=== PATIENT | female | born 1935 | race Caucasian/White ===

== ENCOUNTER 2017-10-30 05:13 | Inpatient (IN) ==
[2017-10-30] MEDS ORDERED: Dexamethasone Inj 20 MG/5 ML Vial IV.PUSH ONE (05:44)
[2017-10-30] MEDS ORDERED: Metoprolol Tartrate 25 MG Tablet PO SCH (05:45)
[2017-10-30] MEDS ORDERED: Insulin NovoLIN Regular Correctional Sugar Inj SQ SCH (05:45)
[2017-10-30] MEDS ORDERED: Chlorhexidine 4% Topical 120 APPLIC/120 ML Bottle TOPICAL SCH (05:45)
[2017-10-30] MEDS ORDERED: Chlorhexidine Gluconate 2% 1 Pack (2 Cloths) TOPICAL SCH (05:45)
[2017-10-30] MEDS ORDERED: TRANEXAMIC ACID IV.SIG SCH ×2 (06:00→10:10)
[2017-10-30] MEDS ORDERED: Sodium Chlor 0.9% Inj 40 ML, Bupivacaine Liposo PF 1.3% Inj 20 ML P-ARTICULR SCH ×2 (06:00)
[2017-10-30] MEDS ORDERED: SODIUM CHLOR 0.9% IV.SIG SCH ×2 (06:00→10:10)
[2017-10-30] MEDS ORDERED: Sodium Chlor 0.9% Inj 500 ML IV.SIG SCH (06:00)
[2017-10-30] MEDS ORDERED: ceFAZolin 2 GM Premix Inj 2 GM/50 ML PIGGYBACK IV.SIG SCH (06:00)
[2017-10-30] MEDS ORDERED: Vancomycin Inj 1 GM/200 ML PIGGYBACK IV.SIG SCH (06:00)
[2017-10-30] MEDS ORDERED: Famotidine PF Inj 20 MG/2 ML Vial ONE (06:26)
--- NOTE | 2017-10-30 07:09 | P.DCO ---
- Physical Therapy Physical Therapy: Gait training, Transfer training, bed to chair Hip: Total hip Right Lower Extremity Weight Bearing: Weight bearing as tolerated Right Lower Extremity Range of Motion: Active ROM - Nursing Nursing: Sivan durham Dressing changes: Do not change dressing Additional instructions: First dressing change in the office - Certification Need for Home Health services: I have seen patient Jocelyne Gillis on 10/30/17. My clinical findings support the need for the requested home health care services because: Need for Home Health Services: Limited ability to care for self, High risk of falls Homebound Certification: I certify that my clinical findings support that this patient is homebound because: Homebound Certification: Post-op weakness, Unsteady gait/balance
[2017-10-30] MEDS ORDERED: Zolpidem Tartrate 5 MG Tablet PO PRN (08:28)
[2017-10-30] MEDS ORDERED: Aluminum/Magnesium/Simethacone Susp 30 ML UDC PO PRN (08:28)
[2017-10-30] MEDS ORDERED: Post-op Orders (for Pharmacy) OTHER STA (08:28)
[2017-10-30] MEDS ORDERED: Bisacodyl 10 MG Supp RECTAL PRN (08:28)
[2017-10-30] MEDS ORDERED: Dicyclomine 10 MG Capsule PO PRN (08:30)
[2017-10-30] MEDS ORDERED: LORazepam 0.5 MG Tablet PO PRN (08:30)
--- NOTE | 2017-10-30 08:36 | P.OP ---
- Preoperative Diagnosis (1) Osteoarthritis of right hip Comment: , Severe - Postoperative Diagnosis (1) Osteoarthritis of right hip Date of procedure: 10/30/17 Procedure: Right total hip arthroplasty Anesthesia: GETA Surgeon: Giovanni Beaulieu MD Behavioral Interventionist: ARIELLE Melgoza The surgical procedure was assisted by my Advanced Registered Nurse Practitioner. My VENEREAL DISEASE INVESTIGATOR presence was necessary throughout this case for the manipulation and positioning of the surgical extremity. My VENEREAL DISEASE INVESTIGATOR was assisting me throughout the duration of this procedure. The skill set of an Advance Registered Nurse Practitioner was medically necessary to complete this procedure. During the surgical case, the neurosurgical nurse practitioner was working at the back table and the Advance Registered Nurse Practitioner was directly assisting me. Estimated blood loss (mL): 250 Operation and Findings: IMPLANT DESCRIPTION: 1. [place] Gription Cup, acetabular size 52. 2. [place] AltrX polyethylene, neutral. 4. [place] femoral stem size 11, no collar, standard offset. 5. Femoral head/neck metal, 36, +1.5. ESTIMATED BLOOD LOSS: 250 cc. JUSTIFICATION FOR PROCEDURE: The patient has end-stage osteoarthritis to the hip. There is an attached conservative measures pathway form in the chart that describes the nonoperative measures that were undertaken prior to consideration of surgical management. The patient understood the risks and benefits of surgical management. See my office notes for further details. PROCEDURE: The patient was brought back to the operative theatre. Adequate anesthesia was obtained. The patient received intravenous vancomycin and Ancef. The patient was carefully placed on the operative table. The lower extremity was prepped and draped in the usual sterile fashion. Fluoroscopic images were obtained. We made a standard anterior incision over the hip. We dissected through the TFL fascia, exposing the anterior capsule. Arthrotomy was performed in a T-shaped fashion. The capsule was tagged with a #2 FiberWire. End-stage arthritis was identified. Osteotomy was performed through the femoral neck exposing the acetabulum. Remnants of the labrum were resected and osteophytes were removed. We sequentially reamed the acetabulum. We trialed the hip and placed the final cup into position. This was done under fluoroscopic guidance to obtain the appropriate inclination and anteversion. A manhole cover was placed into the acetabular component. We then placed the final polyethylene into position and confirmed that it was well seated. Capsular attachments on the calcar and the inner aspect of the greater trochanter were resected. On the proximal aspect of the femur we used a rongeur , box osteotome, canal finder, sequential broaches and lateralizing rasp. We calcar planed the proximal femur. Then thoroughly irrigated the wound. We trialed the hip with the appropriate size stem. We placed the final stem in to position and trialed again. The hip was stable while it was externally rotated 70 degrees when the leg was lowered to the floor. The final head was applied, and final fluoroscopic images were obtained. The wound was thoroughly irrigated again. Interarticular injection of liposomal bupivacaine was given. The capsule was closed with #2 FiberWire and #1 Vicryl. The deep fascia was closed with a #2 Stratafix, followed by 2-0 Vicryl in the skin and Dermabond dressing. Postop plan is to weight-bear as tolerated. DVT prophylaxis will be performed with SCDs, CARMEN lacy, early mobilization, and aspirin 81 mg p.o. twice daily for 6 weeks.
[2017-10-30] MEDS ORDERED: fentaNYL Citrate Inj 100 MCG/2 ML Ampul ONE (08:59)
[2017-10-30] MEDS ORDERED: HYDROmorphone PF Inj 2 MG/ML Vial ONE ×2 (09:00→09:12)
--- NOTE | 2017-10-30 09:48 | XR ---
EXAM DATE: 10/30/2017 9:33 AM EDT AGE/SEX: 82 years / Female INDICATIONS: Post op right hip. CLINICAL DATA: This is the patient's initial encounter. Patient reports that signs and symptoms have been present for 1 day and indicates a pain score of Nonresponsive. MEDICAL/SURGICAL HISTORY: None. None. COMPARISON: [facility], XR HIP AP AND LAT, RIGHT, 05/20/2017. . FINDINGS: The patient is post right hip arthroplasty. Orthopedic hardware is in excellent position. No complica tion is seen. There are advanced degenerative changes within the left hip. CONCLUSION: Uncomplicated right hip arthroplasty. Orthopedic hardware in excellent position. Electronically signed by: Royce Gómez MD 10/30/2017 9:47 AM EDT
--- NOTE | 2017-10-30 09:50 | XR ---
EXAM DATE: 10/30/2017 9:30 AM EDT AGE/SEX: 82 years / Female INDICATIONS: Total right hip arthroplasty. CLINICAL DATA: This is the patient's initial encounter. Patient reports that signs and symptoms have been present for 1 day and indicates a pain score of Nonresponsive. MEDICAL/SURGICAL HISTORY: None. None. COMPARISON: No prior exams available for comparison. FINDINGS: Status post placement of a right hip prosthetic device. There is good position and alignment of the p rosthesis with the bony structures. The bony structures are grossly intact. CONCLUSION: Good position and alignment on this postoperative study. Electronically signed by: Bo Couch MD 10/30/2017 9:48 AM EDT
[2017-10-30] MEDS: Sod Chloride 0.9% Inj 1,000 ML IV.CONT SCH (10:15)
[2017-10-30] MEDS ORDERED: Neostigmine Inj 5 MG/5 ML Syringe IV.PUSH ONE (12:00)
[2017-10-30] MEDS ORDERED: Glycopyrrolate Inj 1 MG/5 ML Syringe IV.PUSH ONE ×2 (12:00)
[2017-10-30] MEDS ORDERED: Lidocaine PF 1% Inj 5 ML Syringe INFILTRATN ONE (12:00)
[2017-10-30] MEDS: Pregabalin 25 MG Capsule PO SCH ×2 (14:25→20:25)
[2017-10-30] MEDS: oxyCODONE/Acetaminophen 10/325 Tablet PO PRN (18:00)
[2017-10-30] MEDS: HYDROmorphone PF Inj 2 MG/ML Vial IV.PUSH PRN ×2 (20:24→23:28)
[2017-10-30] MEDS: Senna/Docusate Sodium 8.6/50 MG Tablet PO SCH ×2 (20:25→22:17)
[2017-10-30] MEDS: Multivitamin/Minerals Therapeutic Tablet PO SCH ×2 (20:26→22:17)
[2017-10-31] MEDS: oxyCODONE/Acetaminophen 10/325 Tablet PO PRN ×4 (00:19→17:38)
[2017-10-31] MEDS: Sod Chloride 0.9% Inj 1,000 ML IV.CONT SCH ×2 (01:47→16:00)
[2017-10-31] MEDS: HYDROmorphone PF Inj 2 MG/ML Vial IV.PUSH PRN ×2 (02:26→22:29)
[2017-10-31 05:45] LABS: Hematocrit 28.1 % (35.0-46.0); Hemoglobin 9.5 gm/dL (11.6-15.3)
[2017-10-31] MEDS ORDERED: Dexamethasone Inj 20 MG/5 ML Vial IV.PUSH ONE (08:00)
[2017-10-31] MEDS: Pregabalin 25 MG Capsule PO SCH ×2 (09:10→20:46)
[2017-10-31] MEDS: Multivitamin/Minerals Therapeutic Tablet PO SCH ×2 (09:10→20:47)
[2017-10-31] MEDS: Senna/Docusate Sodium 8.6/50 MG Tablet PO SCH ×2 (09:10→20:47)
--- NOTE | 2017-10-31 18:57 | P.PNOP ---
Subjective Interval history: The patient is resting in bed in no acute distress. The patient states she did have a fall this morning when trying to get out of bed. The patient states her walker tipped over and she went with it. The patient denies any new complaints of pain. The patient reports minimal pain to the right hip, however her primary complaint is muscle spasms. The patient states the medical doctor prescribed cyclobenzaprine for her muscle spasms which have been helpful. Physical Exam Vital signs: Vital Signs 10/30/17 20:00 10/31/17 00:00 10/31/17 04:00 Temperature 99.9 F H 99.8 F H 98.6 F Pulse Rate 82 90 82 Respiratory Rate 24 18 20 Blood Pressure 100/61 122/57 L 102/55 L Pulse Oximetry 97 91 L 92 L 10/31/17 06:50 10/31/17 08:50 10/31/17 09:50 Temperature 98.1 F 97.6 F 100 F H Pulse Rate 88 84 78 Respiratory Rate 18 18 18 Blood Pressure 144/90 H 129/61 100/51 L Pulse Oximetry 95 95 10/31/17 10:50 10/31/17 12:00 10/31/17 12:03 Temperature 98.3 F 98.3 F Pulse Rate 77 71 Respiratory Rate 12 14 Blood Pressure 101/55 L Pulse Oximetry 95 10/31/17 14:50 10/31/17 18:08 Temperature 98.6 F Pulse Rate 71 Respiratory Rate 12 18 Blood Pressure 108/52 L Pulse Oximetry 95 Intake & Output 10/30/17 10/31/17 10/31/17 18:59 06:59 18:59 Intake Total 2058.15 / 2058.15 720 / 720 1208.15 / 1208.15 Output Total 250 / 250 Balance 1808.15 / 1808.15 720 / 720 1208.15 / 1208.15 Weight 81.5 kg 81.5 kg Intake: IV 558.15 / 558.15 1208.15 / 1208.15 NS Inj 1,000 ML @ 80 mls/hr IV. 1000 / 1000 CONT .[id number] ANGELA Rx#:[id number] Cyklokapron Inj 815 MG In NS 108.15 / 108.15 Inj 100 ML @ 200 mls/hr IV.SIG ONCE ANGELA Rx#:[id number] Vancomycin Inj 1 gm In 200 ml @ 200 / 200 200 mls/hr IV.SIG BOARD CERTIFIED BEHAVIORAL ANALYST ANGELA Rx#:[id number] Ancef 2 GM Premix Inj 2 gm In 50 / 50 50 ml @ 100 mls/hr IV.SIG BOARD CERTIFIED BEHAVIORAL ANALYST ANGELA Rx#:[id number] Ancef Inj 1,000 MG In NS Inj 200 / 200 100 ML @ 200 mls/hr IV.SIG Q6H ANGELA Rx#:[id number] Oral 720 / 720 Anesthesia Amount 1500 / 1500 Output: Estimated Blood Loss 250 / 250 Other: # Voids 2 2 Date of Last Bowel Movement 10/29/17 10/29/17 Narrative: The patient's dressing is intact. The patient's dressing was changed due to moderate serosanguineous drainage. The patient's current dressing has minimal drainage. EHL/TA/G are intact. 2+ pedal pulse. The patient's calf is soft and nontender. Sensation is intact to light touch distally. Results - Labs CBC & Chem 7: 10/31/17 04:50 Laboratory Results - last 24 hr 10/31/17 04:50 Hgb 9.5 L Hct 28.1 L - Procedures Right total hip arthroplasty Assessment and Plan - Assessment and Plan POD #1: [Right] total hip arthroplasty 1. Weightbearing as tolerated on [right] lower extremity. 2. Aspirin 81 mg twice daily for DVT prophylaxis. 3. Ice as needed for swelling. 4. Anticipatory discharge Saturday or Saturday to home versus detention facility. 5. The patient will follow up with Dr. Beaulieu and/or ARIELLE Navarrete as previously scheduled.
[2017-11-01] MEDS: oxyCODONE/Acetaminophen 10/325 Tablet PO PRN ×2 (04:22→10:58)
[2017-11-01] MEDS: Sod Chloride 0.9% Inj 1,000 ML IV.CONT SCH (04:22)
[2017-11-01 04:24] LABS: Hemoglobin 9.1 gm/dL (11.6-15.3)
[2017-11-01] MEDS: HYDROmorphone PF Inj 2 MG/ML Vial IV.PUSH PRN (06:15)
[2017-11-01] MEDS: Pregabalin 25 MG Capsule PO SCH (09:31)
[2017-11-01] MEDS: Senna/Docusate Sodium 8.6/50 MG Tablet PO SCH (09:31)
[2017-11-01] MEDS: Multivitamin/Minerals Therapeutic Tablet PO SCH (09:31)
--- NOTE | 2017-11-13 15:44 | P.DS ---
Date of admission: 10/30/17 08:26 Primary care physician: Gurmeet Barkley MD Attending physician on discharge: Giovanni Beaulieu Anticipated date of discharge: 11/01/17 Brief History from admission: The patient was admitted with severe OA of the right hip to have a right IRENE DS: Diagnosis - Discharge Diagnosis (1) Osteoarthritis of right hip Status: Acute (2) Status post total hip replacement, right Status: Acute DS: Summary Hospital Course: The patient was admitted to the hospital for severe osteoarthritis of the [right ] hip to have a [right] total hip arthroplasty. The patient's surgery went well with no complication. The patient is on a [regular] diet. The patient's DVT prophylaxis includes use of [ASA 81 mg BID]. The patient is weightbearing as tolerated. The patient was discharged [home with home health] and will follow up in the office with Dr. Beaulieu and/or ARIELLE Navarrete as previously scheduled. - Time Spent with Patient Total time spent providing and/or coordinating discharge services: Greater than 30 minutes - Quality: VTE Deep Vein Thrombosis/Pulmonary Embolism Present on Admission: No Exam Narrative: See last progress note Results Procedures completed during hospitalization: Right total hip arthroplasty - Impressions ITS Impressions Hip X-Ray 10/30/17 08:26 CONCLUSION: Uncomplicated right hip arthroplasty. Orthopedic hardware in excellent position. Discharge Plan - Discharge Disposition Patient Disposition: W/Home Health Service - Discharge Condition Condition: Stable - Discharge Order Discharge Orders: Discharge Order (Routine); Ordered 10/30/17 Ordered By: Royce Conte - Discharge Details Anticipated Discharge Date: 11/01/17 Discharge Comment: f/u in the office with Dr. Beaulieu or ARIELLE Navarrete - Physicians Team Primary Care Provider: Gurmeet Barkley Attending Provider: Giovanni Beaulieu - Rxs /Orders / Referrals /Forms Prescriptions: Continue calcium carbonate [Calcium 600] 600 mg calcium (1,500 mg) Tablet 600 mg PO DAILY cholecalciferol (vitamin D3) [Vitamin D3] 1,000 unit Tablet 1,000 unit PO DAILY citalopram [Celexa] 40 mg Tablet 40 mg PO DAILY dicyclomine 10 mg Capsule 10 mg PO QID PRN (Reason: Loose Stool) fentanyl (PF)-bupivacaine-NaCl 2 mcg/mL- 0.1 % Prefilled Pump [place] fluocinonide 0.1 % Cream 1 applic TOPICAL BID lansoprazole [Prevacid] 30 mg Capsule,Delayed Release(Dr/Ec) 30 mg PO AC DINNER lorazepam 0.5 mg Tablet 0.5 mg PO BID PRN (Reason: Anxiety) multivitamin Tablet 1 tab PO DAILY oxycodone-acetaminophen 10-325 mg Tablet 1 tab PO Q6H PRN (Reason: Pain) pregabalin [Lyrica] 50 mg Capsule 50 mg PO BID Discontinued aspirin [Aspirin Low Dose] 81 mg Tablet,Delayed Release (Dr/Ec) 81 mg PO HS [id number] C-Mn [Glucosamine Chondroitin MaxStr] 500-400 mg Capsule 1 tab PO DAILY Ambulatory Orders / Order Sets / DME: Adjustable Commode 3-in-1 (1 each) (Routine) Location: Determined by Patient Ordered By: Royce Conte Walker With Front Wheels (1 each) (Routine) Location: Determined by Patient Ordered By: Royce Conte Referrals: Gurmeet Barkley MD [Primary Care Provider] - See Instructions Nurse Oncall,Agency [AGENCY] - See Instructions - Discharge Instructions Patient Printed Instructions: How to Choose and Use a Walker (GEN), Regular Diet (DC), Fall Prevention (DC), CARMEN Hose (DC), Total Hip Replacement (DC) Additional Instructions: Do not change surgical dressing, leave intact. Take medications as directed. Keep or make follow up appointments as directed. Maintain safety precautions to prevent falls. - Post Discharge Care Plan Care Plan Goals: Discharge Care Plan Goals for Total Hip Replacement You had a hip replacement surgery. This means your natural hip was replaced with an artificial joint (prosthesis). You may be recovering at home or in a rehabilitation facility. Either way, you must take care of your new hip. Here are some goals to help you heal well. Directions to Meet your Goals: 1. Activity & Exercises: * Take pain medicine as directed by your doctor. * Dont drive until your doctor says its OK. And never drive while taking opioid pain medicine. * Wear the support stockings you were given in the hospital as directed by your surgeon. * Dont sit for more than 30 to 45 minutes at one time. * Dont lean forward while sitting. * Dont cross your legs. * Keep your feet flat on the floor. Dont turn your foot or leg inward. This stresses your hip joint. * Use an elevated toilet seat for 6 weeks after surgery. * Nap if you are tired, but dont stay in bed all day. * Sit on a firm cushion when you ride in a car and avoid sitting too low. Try not to bend your hip too much when getting in and out of the car. 2. Prevent Falls/Injury: * Follow your doctors orders regarding how much weight to put on the affected leg. * Dont bend at the hip when you bend over. Don't bend at the waist to put on socks and shoes. And avoid picking up items from the floor. * Use a cane, crutches, a walker, or handrails until your balance, flexibility, and strength improve. And remember to ask for help from others when you need it. * Free up your hands so that you can use them to keep balance. Use a peter pack , apron, or pockets to carry things. * Arrange your household to keep the items you need handy. Keep everything else out of the way. * Remove items that may cause you to fall, such as throw rugs and electrical cords. * Use nonslip bath mats, grab bars, an elevated toilet seat, and a shower chair in your bathroom * Sit on a shower stool or chair when you shower to keep from falling. 3. Precautions: * Prevent infection. Any infection will need to be treated immediately. Call your doctor right away if you think you might have an infection. * Tell your dentist that you have an artificial joint and take antibiotics as prescribed before any dental work. * Tell all your healthcare providers about your artificial joint before any medical procedure. * Maintain a healthy weight. Get help to lose any extra pounds. Added body weight puts stress on the joints. 4. Incision Care: * Prevent infection by washing your hands often. If an infection occurs, it will need to be treated right away. * Call your doctor right away if you think you may have an infection. Symptoms include a fever or an incision that leaks white, green, or yellow fluid. * Don't soak your incision in water until your doctor says its OK. This means no hot tubs, bathtubs, or swimming pools. * Follow your doctor's instructions for changing the dressing. * Dont rub the incision, or apply creams or lotions to it. * If you notice any redness or drainage around the bandage site, contact your surgeon's office immediately. 5. Follow-Up: Do Not miss your follow-up appointment. Keep up with all your appointments and yearly check ups When to call your doctor: Call your doctor right away if you have: Hip pain gets worse Pain or swelling in your calf or leg not related to your incision Tenderness or redness in your calf Fever of 100.4F (38C) or higher, or as directed by your healthcare provider Shaking chills Swelling or redness at the incision site gets worse Fluid draining from the incision Call 911: Call 911 right away if you have: Chest pain Shortness of breath Any pain or tenderness in your calf
== END 2017-11-01 13:37 | disposition home health service (06) ==
LOC: HSDC 05:13 → EDSTATUS 07:00 → N06 08:26
PROVIDERS: ADMIT Orthopaedic Surgery; ATTEND Orthopaedic Surgery